=== PATIENT | female | born 1970 | race Caucasian/White ===

== ENCOUNTER → 2021-11-28 | Day surgery (SDC) | payer OTHER ==
[~2021-11-28] VITALS: Ht 167.6 cm; Wt 74.8 kg
[~2021-11-28] MED LIST: CALCIUM MAGNES1 EAC1 PO; VITAMIN D PO; [UNRECOGNIZED DRUG - REMARK] PO
== END | disposition home or self-care (01) ==
LOC: FAS 07:43
DX: K59.00 Constipation, unspecified (principal); R19.7 Diarrhea, unspecified; K21.9 Gastro-esophageal reflux disease without esophagitis; F17.200 Nicotine dependence, unspecified, uncomplicated; Z90.710 Acquired absence of both cervix and uterus; Z86.16 Personal history of COVID-19
CPT/HCPCS: J2704; J7120

== ENCOUNTER 2021-12-28 11:43 | Emergency (ER) | payer OTHER | END 2021-12-28 12:48 | disposition home or self-care (01) | LOC: FER 11:43 | DX: S93.402A Sprain of unspecified ligament of left ankle, initial encounter (principal); F17.200 Nicotine dependence, unspecified, uncomplicated; Z28.310 Unvaccinated for COVID-19; W19.XXXA Unspecified fall, initial encounter; X50.1XXA Overexertion from prolonged static or awkward postures, initial encounter; Y92.009 Unspecified place in unspecified non-institutional (private) residence as the place of occurrence of the external cause | CPT/HCPCS: 73610 ==